=== PATIENT | male | born 1950 | race Caucasian/White ===

== ENCOUNTER 2021-01-20 21:39 | Emergency (ER) | payer MEDICARE, OTHER, SELFPAY ==
--- NOTE | ~2021-01-20 | XR_ITS ---
XR chest 1V DATE: 01/20/2021 22:17 INDICATION: Possible cerebrovascular accident. Brain stimulator for 6 months. TECHNIQUE: AP chest COMPARISON: None FINDINGS: Battery pack for neurostimulator overlies the upper left thorax. Status post lower anterior cervical spine surgical fusion. Normal heart size. Mild aortic unfolding. No hilar or mediastinal enlargement. No pulmonary infiltrate or consolidation, pleural effusion or pulmonary vascular congestion or pneumo thorax. Degenerative spurring of the thoracic spine. IMPRESSION: No active cardiopulmonary disease Reviewed, dictated and finalized at [facility].
--- NOTE | ~2021-01-20 | CT_ITS ---
EXAMINATION: CT brain wo con DATE: 01/20/2021 22:18 INDICATION: Confusion, memory loss TECHNIQUE: Computed tomography (CT) of the head was performed without intravenous contrast. The mA wa s adjusted according to patient size. Iterative reconstruction technique was employed. Exam dose: 60 5.33 mGy-cm total exam DLP. COMPARISON: None FINDINGS: Bilateral thalamic neurostimulator devices. No intracranial mass lesion or hemorrhage or cerebrovascular accident. There is bilateral carotid siphon internal carotid artery calcifications. There is nonspecific mild d iminished attenuation cerebral white matter, likely due to chronic small vessel ischemic changes. No subdural or epidural hematoma is evident. No fracture or bone destruction of the cranial vault. Normal development and aeration of the mastoid air cells and included paranasal sinuses. IMPRESSION: No acute intracranial finding Reviewed, dictated and finalized at [facility]. Reviewed, dictated and finalized at location [facility].
[2021-01-20 21:48] VITALS: BP 176/96; PULSE 102; RESP 19; O2SAT 98
[2021-01-20 21:54] LABS: Glucose Point of Care 132 (65-105)
--- NOTE | 2021-01-20 21:54 | PC.NURSE ---
Patient's bedside glucose is 132.
--- NOTE | 2021-01-20 21:55 | ECG_ITS ---
Measurements Intervals [place] Rate: 73 P: 81 WI: 172 QRS: 48 QRSD: 170 T: 120 QT: 394 QTc: 434 Interpretive Statements SINUS RHYTHM BASELINE ARTIFACT- I, II, III, AVR, AVL, AVF, V1-V6 BORDERLINE ECG Electronically Signed On 01-21-2021 6:44:51 CDT by Vadim Dyer D.O.
[2021-01-20 21:59] VITALS: BP 176/98; PULSE 75; RESP 18; O2SAT 97
[2021-01-20 22:01] VITALS: BP 158/93; PULSE 74; RESP 18; O2SAT 97
--- NOTE | 2021-01-20 22:05 | PC.NURSE ---
Patient taken to CT. Patient on tele.
--- NOTE | 2021-01-20 22:11 | ED.NEUROSD ---
HPI - Neuro Symptoms/Deficit General Chief Complaint: Suspected CVA Stated Complaint: memory issues Time Seen by Provider: 01/20/21 22:31 Source: patient and family Mode of arrival: ambulatory Limitations: no limitations History of Present Illness HPI Narrative: 70-year-old male Patient is visiting here from [place] He has a history of having a deep brain stimulator placed at [place] to treat essential tremor He is doing well with only a modest amount of tremor mostly in his left arm and hand Today he spent basically a normal day and then went to take a shower this evening about 2 hours before arrival, which he did However after the shower he did not really remember taking it He had repeatedly questioned his about how he got into the shower whether he took a shower and had poor to no recall initially of the time between him getting out of the shower and driving to the hospital and arriving here However now about 2-1/2 hours into the episode effectively everything is back to normal and he is only left with a small window while he was actually showering that he does not recall His was there with him and is quite sure that there was no fall involved in this and that there was no convulsive seizure type activity or really anything that might be interpreted as a partial or absence seizure Currently he is much better, some of the things that he had forgotten are coming back to him in the window of amnesia his narrowed to pretty much only the time actually spent in the shower Related Data Home Medications Medication Instructions Recorded Confirmed celecoxib [Celebrex] 100 mg PO BID 01/20/21 fluticasone propionate [Flonase] INTRANASAL 01/20/21 omeprazole 20 mg PO BID 01/20/21 rosuvastatin [Crestor] 20 mg PO DAILY 01/20/21 Allergies Allergy/AdvReac Type Severity Reaction Status Date / Time No Known Allergies Allergy Verified 01/20/21 21:59 Review of Systems Review of Systems: All systems reviewed & are unremarkable except as noted in HPI and below Constitutional: Constitutional: Denies chills, Denies fever(s) and Denies headache(s) Eyes: Eyes: Denies change in vision ENT: Denies headache(s) and Denies sore throat Cardiovascular: Cardiovascular: Denies chest pain and Denies dyspnea Respiratory: Respiratory: Denies cough and Denies dyspnea Gastrointestinal: Gastrointestinal: Denies abdominal pain, Denies diarrhea and Denies vomiting Genitourinary: Genitourinary: Denies dysuria and Denies urinary frequency Musculoskeletal: Musculoskeletal: Denies deformity, Denies arthralgias, Denies joint swelling and Denies numbness Integumentary/Breasts: Skin/Breast: Denies rash and Denies wounds Neurologic: Denies headache(s), Denies focal weakness and Denies numbness Psychiatric: Psychiatric: Reports no additional psychiatric complaints Endocrine: Endocrine: Reports no additional endocrine complaints Hematologic/Lymphatic: Hematologic/Lymphatic: Reports no additional hematologic/lymphatic complaints Allergic/Immunologic: Allergic/Immunologic: Reports no additional allergic/immunologic complaints Exam Const: General: cooperative, healthy appearing and no acute distress Orientation/consciousness: patient oriented x3 (alert) HENMT: Head: atraumatic and other (He has visible DBS implants) Ears: external ears normal General nose exam: no epistaxis Eyes: Conjunctivae: conjunctivae normal EOM: EOMs intact bilaterally Neck: Neck: normal visual inspection, supple and no JVD Resp: Effort & Inspection: normal respiratory effort and not labored Auscultation: clear to auscultation bilaterally Cardio: Rate: regular rate Rhythm: regular rhythm Heart sounds: no murmurs GI: GI Palp: Yes Soft to palpation and No Tenderness to palpation present (GI) Skin: General skin exam: normal color and no rashes or lesions noted Neuro: General: oriented to person, oriented to place, oriented to time, patient orient
[2021-01-20 22:12] LABS: Basophils Percent Auto 0.7 % (0.2-1.2); Eosinophils Absolute Auto 0.3 K/mm3 (0-0.3); Eosinophils Percent Auto 4.6 % (0-4.4); Hemoglobin 16.4 g/dL (14.0-18.0); Immature Granulocyte Absolute 0.02 K/mm3 (0.00-0.031); Immature Granulocyte Percent A 0.4 % (0-0.5); Lymphocytes Absolute Auto 1.18 K/mm3 (0.9-3.2); Mean Corpuscular HGB Conc 32.8 g/dl (32-36); Mean Corpuscular Hemoglobin 30.3 pg (26-34); Mean Corpuscular Volume 92.4 fl (80-100); Mean Platelet Volume 10.7 fl (7.4-10.4); Monocytes Absolute Auto 0.6 K/mm3 (0.1-0.6); Monocytes Percent Auto 10.3 % (2.6-8.5); Neutrophils Absolute Auto 3.5 K/mm3 (1.3-6.7); Platelet Count Result 166 k/mm3 (150-375); Red Blood Count 5.41 M/mm3 (4.6-6.20); Red Cell Distribution Width 12.9 % (11.5-14.5); White Blood Count 5.6 K/mm3 (4.5-10.0)
[2021-01-20 22:20] LABS: Anion Gap 7 mmol/L (8-16); Blood Urea Nitrogen 19 mg/dL (9-20); Calcium 9.7 mg/dL (8.4-10.2); Carbon Dioxide 30 mmol/L (22-30); Chloride 106 mmol/L (98-107); Estimated Glomerular Filt Rate 50; Glucose 129 mg/dL (75-110); Potassium 3.7 mmol/L (3.4-5.0); Sodium 143 mmol/L (137-145)
[2021-01-20 22:24] LABS: Prothrombin Time 13.6 Seconds (11.1-14.7)
[2021-01-20 22:25] LABS: Partial Thromboplastin Time 27.5 SECONDS (22.3-36.8)
[2021-01-20 22:32] LABS: Troponin I < 0.012 ng/mL (0.000-0.034)
--- NOTE | 2021-01-20 22:32 | PC.NURSE ---
Patient's states the patient had his first brain deep stimulation in 08/19/2019. He had his second brain surgery on 03/02/2020. 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
[2021-01-21 00:05] VITALS: BP 137/82; PULSE 66; RESP 15; O2SAT 95
== END 2021-01-21 00:05 | disposition home or self-care (01) ==
PROVIDERS: Emergency Provider Emergency Medicine
DX: G45.4 Transient global amnesia (principal)
CPT/HCPCS: 36415; 70450; 71045; 80048; 82948; 84484; 85025; 85610; 85730; 93005; 99284